=== PATIENT | female | born 1995 | race Two or more races ===

== ENCOUNTER 2024-06-01 15:00 | Inpatient (IN) | payer OTHER ==
[~2024-06-01] VITALS: Ht 162.6 cm; Wt 68.0 kg
[2024-06-19 17:55] VITALS: BP 114/61
[2024-06-19] MEDS ORDERED: AMPICILLIN SODIUM 2,000 MG VIAL ONE (17:58)
[2024-06-19] MEDS ORDERED: AMPICILLIN SODIUM 2,000 MG VIAL IV ONE (18:10)
[2024-06-19 18:28] LABS: HEMATOCRIT 32.9 % (36.0-45.00); HEMOGLOBIN 11.7 g/dL (12.0-15.00); MEAN CELL VOLUME 89.4 fL (80.00-100.00); MEAN CORPUSCULAR HEMOGLOBIN 31.8 pg (27.00-32.0); MEAN CORPUSCULAR HGB CONC 35.5 g/dl (32.0-36.0); PLATELET COUNT 179 K/uL (150-450); RED BLOOD COUNT 3.68 M/uL (4.00-6.00); RED CELL DISTRIBUTION WIDTH 13.8 % (11.5-14.5)
[2024-06-19 18:30] LABS: PH,URINE 7.5 (5.0-8.0); URINE APPEARANCE Clear; URINE BILIRRUBIN Negative (NEGATIVE); URINE BLOOD Negative; URINE COLOR Yellow; URINE KETONE Negative (NEGATIVE); URINE LEUKOCYTE Negative; URINE NITRATE Negative; URINE PROTEIN Negative (NEGATIVE)
[2024-06-19 18:33] LABS: URINE BACTERIA 529.1 uL (0.0-1933); URINE EPITHELIAL CELLS 10.6 uL (0.0-38.8); URINE RBC 2.5 uL (0.0-20.8); URINE WBC 5.5 uL (0.0-23.2)
[2024-06-19 18:36] LABS: URINE GLUCOSE 100 MG/DL (NEGATIVE)
[2024-06-19] MEDS ORDERED: PRENATABS RX T1 EACH PO (18:36)
[2024-06-19] MEDS ORDERED: IRON325 MG PO (18:36)
[2024-06-19 18:51] LABS: INR < 0.93; PARTIAL THROMBOPLASTIN TIME 25.7 SECONDS (22.0-34.0); PROTHROMBIN TIME 10.1 SECONDS (9.0-11.5)
[2024-06-19 18:55] LABS: ALBUMIN 2.9 gm/dL (3.4-5.0); BILIRUBIN TOTAL 0.47 mg/dL (0.3-1.2); CALCIUM 8.9 mg/dL (8.5-10.1); CREATININE SERUM 0.51 mg/dL (0.55-1.02); GFR 144.65; GLOBULINA 3.5 G/DL (2.4-3.5); POTASSIUM 3.41 mEq/L (3.5-5.1); TOTAL PROTEIN 6.4 gm/dL (6.4-8.2)
[2024-06-19] MEDS ORDERED: AMPICILLIN SODIUM 1,000 MG VIAL IV SCH ×2 (20:00→21:00)
[2024-06-19 20:04] VITALS: BP 121/65
[2024-06-19] MEDS ORDERED: MORPHINE SULFATE 4 MG/ML CARTRIDGE IV PRN (23:30)
[2024-06-20] VITALS (9 sets, daily range): BP systolic 82–124; BP diastolic 52–73
[2024-06-20] MEDS ORDERED: OXYTOCIN 500 ML IV ONE (07:45)
[2024-06-20] MEDS ORDERED: ERYTHROMYCIN BASE OPHT 1GM EACH TUBE OP ONE ×2 (09:37→16:45)
[2024-06-20] MEDS ORDERED: OXYTOCIN 20 UNITS/1000ML RL PIGGYBAG IV ONE (09:37)
[2024-06-20] MEDS ORDERED: CHLORHEXIDINE GLUCONATE 120 ML BOTTLE TOP ONE ×2 (09:37→16:45)
[2024-06-20] MEDS ORDERED: LIDOCAINE HCL 1% 10ML VIAL ONE (09:38)
[2024-06-20] MEDS ORDERED: MORPHINE SULFATE 2 MG/ML CARTRIDGE IV ONE (11:30)
[2024-06-20] MEDS ORDERED: IBUprofen 400 MG TABLET PO PRN (16:00)
[2024-06-20] MEDS ORDERED: OXYTOCIN 1,000 ML IV SCH (16:00)
[2024-06-20] MEDS ORDERED: CHLORHEXIDINE GLUCONATE 120 ML BOTTLE TOP SCH (16:00)
[2024-06-20] MEDS ORDERED: LIDOCAINE HCL 1% 10ML VIAL IJ ONE (16:45)
[2024-06-21] VITALS: BP 101/61
[2024-06-21 07:04] LABS: HEMATOCRIT 28.3 % (36.0-45.00); MEAN CELL VOLUME 87.9 fL (80.00-100.00); MEAN CORPUSCULAR HGB CONC 36.7 g/dl (32.0-36.0); PLATELET COUNT 168 K/uL (150-450); RED BLOOD COUNT 3.22 M/uL (4.00-6.00); RED CELL DISTRIBUTION WIDTH 14.3 % (11.5-14.5)
[2024-06-21 07:09] LABS: MEAN CORPUSCULAR HEMOGLOBIN 32.2 pg (27.00-32.0)
[2024-06-21 07:10] LABS: HEMOGLOBIN 10.4 g/dL (12.0-15.00)
[2024-06-21] MEDS ORDERED: FF) RHO(D) IMMUNE GLOBULIN (POM) IM ONE (08:00)
[2024-06-21] MEDS ORDERED: HYDROCORTISONE 2.5% 30 GM TUBE RECTAL SCH (09:00)
[2024-06-21 09:14] VITALS: BP 108/71
[2024-06-21 16:49] VITALS: BP 101/64
[2024-06-21 20:19] VITALS: BP 100/56
[2024-06-22] VITALS: BP 109/72
[2024-06-22 08:00] VITALS: BP 98/65
== END 2024-06-22 14:01 | disposition home or self-care (01) | DRG 807 ==
LOC: LDR 06-15 15:00 → OB/GYN 06-20 16:02
PROVIDERS: Obstetrics & Gynecology; ADMIT Obstetrics & Gynecology Maternal & Fetal Medicine; ATTEND Obstetrics & Gynecology Maternal & Fetal Medicine
PROC: 4A1HXCZ Monitoring of Products of Conception, Cardiac Rate, External Approach (ICD-10-PCS; 2024-06-19)
PROC: 10D07Z6 Extraction of Products of Conception, Vacuum, Via Natural or Artificial Opening (ICD-10-PCS; principal; 2024-06-20)
PROC: 0KQM0ZZ Repair Perineum Muscle, Open Approach (ICD-10-PCS; 2024-06-20)
PROC: 3E033VJ Introduction of Other Hormone into Peripheral Vein, Percutaneous Approach (ICD-10-PCS; 2024-06-20)
DX: O70.1 Second degree perineal laceration during delivery (principal); O75.81 Maternal exhaustion complicating labor and delivery; Z37.0 Single live birth; O66.5 Attempted application of vacuum extractor and forceps; Z3A.40 40 weeks gestation of pregnancy; Z20.822 Contact with and (suspected) exposure to COVID-19

== ENCOUNTER 2024-06-07 16:04 | Outpatient (CLI) | payer OTHER | END 2024-06-07 17:06 | disposition home or self-care (01) | LOC: NST 16:04 | PROVIDERS: ATTEND Obstetrics & Gynecology | DX: Z34.83 Encounter for supervision of other normal pregnancy, third trimester (principal) ==

== ENCOUNTER → 2024-06-12 | Outpatient (CLI) | payer OTHER ==
[~2024-06-12] MED LIST: IRON325 MG PO; PRENATABS RX T1 EACH PO
== END | disposition home or self-care (01) ==
LOC: NST 13:22
PROVIDERS: ATTEND Obstetrics & Gynecology Gynecology
DX: Z34.83 Encounter for supervision of other normal pregnancy, third trimester (principal)